=== PATIENT | male | born 1945 | race Caucasian/White ===

== ENCOUNTER → 2016-12-30 | Outpatient (REF) ==
[~2016-12-30] MED LIST: ALKA-SELTZER HE1 TEF PO; AMITRIPTYLINE H25 M1 PO; AMITRIPTYLINE H75 M1 PO; ASPIRIN 32325 MG/TAB PO; ATORVASTATIN; CARDIZEM CD360 MG PO; CARDIZEM LA300 MG PO; CARDIZEM LA360 MG PO; CELEXA 20MG20 MG/TAB PO; CORDARONE200 MG/TAB PO; COUMADIN 5MG5 MG/TAB PO; DULCOLAX S10 MG/SUPP RC; ENULOSE10 GM/15 M PO; FLOMAX 0.40.4 MG/CAP PO; FUROSEMIDE; GENTLE LAXATIVE10 MG RC; GOLYTELY1 PDR PO; LASIX 40MG TABL40 MG PO; LEVSIN0.125 M1 PO; LIPITOR 10MG10 MG PO; LISINOPRIL; LOPID PO; LOVENOX150 MG/ML SC; MIRALAX PA17 GM/Dose PO; MOBIC15 MG PO; MYCOSTATIN100000 U/G TP; PERCOCET 325 MG1 TA2 PO; PRIL40 PO; PRINIVIL20 MG PO; PRINIVIL5 MG PO; REMERON 15M15 MG/TA1 PO; RT ADVAIR HFA 1112 G IH; RT SPIRIVA18 MCG IH; TRAMADOL; TYLENOL 325MG325 MG PO; ULTRAM 50MG TAB50 MG PO; UNABLE; WELLBUTRIN SR100 M1 PO; WELLBUTRIN XL150 MG PO; XANAX; XANAX .25M0.25 MG/TA PO; XANAX 0.5MG0.5 MG PO; ZOCOR 10MG10 MG PO; [UNRECOGNIZED DRUG - OTHER]
== END ==
LOC: ZLAB.WCH 16:32
DX: Z01.89 Encounter for other specified special examinations (principal)

== ENCOUNTER → 2017-05-12 | Outpatient (REF) | LOC: ZLAB.WCH 17:59 | DX: Z01.89 Encounter for other specified special examinations (principal) ==

== ENCOUNTER → 2017-06-28 | Outpatient (CLI) | payer MEDICARE, BC | LOC: COL.PUL 09:34 | DX: R06.02 Shortness of breath (principal); Z87.891 Personal history of nicotine dependence; I51.89 Other ill-defined heart diseases ==

== ENCOUNTER → 2018-01-21 | Outpatient (REF) | LOC: ZLAB.WCH 17:51 | DX: Z01.89 Encounter for other specified special examinations (principal) ==

== ENCOUNTER → 2018-03-14 | Outpatient (CLI) | payer MEDICARE, BC | LOC: COL.PUL 08:23 | DX: G47.34 Idiopathic sleep related nonobstructive alveolar hypoventilation (principal) ==

== ENCOUNTER → 2018-05-17 | Outpatient (REF) | LOC: ZLAB.WCH 14:38 | DX: Z01.89 Encounter for other specified special examinations (principal) ==

== ENCOUNTER → 2018-08-22 | Outpatient (REF) | LOC: ZLAB.WCH 16:26 | DX: Z01.89 Encounter for other specified special examinations (principal) ==

== ENCOUNTER → 2019-03-07 | Outpatient (REF) | LOC: ZLAB.WCH 15:57 | DX: Z01.89 Encounter for other specified special examinations (principal) ==

== ENCOUNTER → 2019-03-24 | Emergency (ER) | payer MEDICARE, BC ==
[~2019-03-24] VITALS: Ht 177.8 cm; Wt 95.9 kg
[~2019-03-24] MED LIST changes: +DOXYCYCLINE 10100 MG PO; +ELIQUIS 5MG PO; +GLUCOPHAGE500 MG/TAB PO; +NEURONTIN400 MG/CAP PO; +PREDNISONE20 MG PO; +PROAIR HFA0.09 MG/AC IH; +STOOL SOFTENER100 M2 PO; +TOPROL XL100 MG PO
[2019-03-24 12:50] VITALS: TEMP 97.9
[2019-03-24 13:47] LABS: BASO # 0.1 (0.0-0.2); BASO % 1.1 % (0.0-2.0); EOS # 0.2 (0.0-0.7); EOS % 2.2 % (0-4.0); GRAN # 5.6 (1.4-6.5); GRAN % 73.4 % (42.2-75.2); HEMATOCRIT 45.4 % (42.0-52.0); HEMOGLOBIN 14.3 g/dl (13.5-18.0); LYMPH # 1.2 (1.2-3.4); LYMPH % 15.8 % (20.0-51.0); MEAN CELL VOLUME 92 fl (80.0-100.0); MEAN CORPUSCULAR HEMOGLOBIN 29 pg (27.0-31.0); MEAN CORPUSCULAR HGB CONC 32 g/dl (33.0-37.0); MEAN PLATELET VOLUME 11.9 fl (7.4-10.4); MONO # 0.5 (0.1-0.6); PLATELET COUNT 101 K/mm3 (130-400); RED BLOOD COUNT 4.94 M/mm3 (4.20-5.60); REDCELL DISTRIBUTION WIDTH-CV 13.4 % (11.5-14.5)
[2019-03-24 13:57] LABS: ALBUMIN 4.4 gm/dL (3.5-5.0); BILIRUBIN,TOTAL 0.8 mg/dL (0.0-1.0); CALCIUM 9.1 mg/dL (8.4-10.2); CREATININE, serum 0.78 (0.66-1.25); POTASSIUM 3.9 mmol/L (3.4-5.0); TOTAL PROTEIN 7.6 gm/dL (6.4-8.2)
[2019-03-24 15:50] VITALS: BP 130/79; PULSE 79
== END ==
LOC: COL.ER 12:46
PROVIDERS: Emergency Medicine
DX: J44.9 Chronic obstructive pulmonary disease, unspecified (principal); R09.02 Hypoxemia; F17.210 Nicotine dependence, cigarettes, uncomplicated; I10 Essential (primary) hypertension; E78.5 Hyperlipidemia, unspecified; Z86.718 Personal history of other venous thrombosis and embolism
CPT/HCPCS: J7512

== ENCOUNTER 2019-03-27 07:37 | Day surgery (SDC) | payer MEDICARE, BC ==
[~2019-03-27] VITALS: Ht 177.8 cm; Wt 98.7 kg
[~2019-03-27 07:37] MED LIST changes: -ELIQUIS 5MG PO; -GLUCOPHAGE500 MG/TAB PO; -NEURONTIN400 MG/CAP PO; -STOOL SOFTENER100 M2 PO; -TOPROL XL100 MG PO
[2019-03-27 08:28] VITALS: BP 153/84; PULSE 64; TEMP 98.4
--- NOTE | 2019-03-27 08:40 | NUR ---
TO RM AT 0750 CALL LIGHT IN REACH AT BEDSIDE.
[2019-03-27] MEDS ORDERED: STOOL SOFTENER100 M2 PO (08:46)
[2019-03-27] MEDS ORDERED: NEURONTIN400 MG/CAP PO (08:47)
[2019-03-27] MEDS ORDERED: GLUCOPHAGE500 MG/TAB PO (08:48)
[2019-03-27] MEDS ORDERED: TOPROL XL100 MG PO (08:49)
[2019-03-27] MEDS ORDERED: ELIQUIS 5MG PO (08:52)
[2019-03-27 09:50] VITALS: BP 106/84; PULSE 69
--- NOTE | 2019-03-27 09:50 | NUR ---
TO RM 8 PER CART FROM ENDOSCOPY FOLLOWING A BRONCHOSCOPY. PATIENT WEARING O2 MASK AT 5L, 02 SAT 94%. CRETA AND DAUGHTER TALKED TO DR VALADEZ PRIOR TO RETURNING TO . OCCASIONAL NONPRODUCTIVE COUGH. RESPIRATIONS LABORED ON ADMISSION WHEN TALKING.
[2019-03-27 10:05] VITALS: BP 129/76; PULSE 70
[2019-03-27 10:20] VITALS: BP 127/75; PULSE 66
--- NOTE | 2019-03-27 10:20 | NUR ---
RECEIVED WATER AND TAKING SIPS. REFUSED ANYTHING TO EAT. DISCONTINUED O2 SAT 90-91%
--- NOTE | 2019-03-27 10:20 | NUR ---
O2 SAT THEY WERE UPON ADMISSION. PATIENT HAS O2 AT HOME AND VERBALIZED UNDERSTANDING TO WEAR IT SOON HE GETS HOME STATED SHE DISCUSSED HIS O2 AT HOME AND WILL DISCUSS IT MORE ON THE FOLLOW UP.
--- NOTE | 2019-03-27 10:25 | NUR ---
RECEIVED AZITHROMYCIN AND PREDNISONE ORDERED PRIOR TO DISCHARGE. RECEIVED DISCHARGE MED INFORMATION SHEETS RECEIVED DISCHARGE INSTRUCTIONS AND VERBALIZED UNDERSTANDING. DISCONINTUED IV AND INT- CATHETER INTACT
--- NOTE | 2019-03-27 10:40 | NUR ---
DISCHARGED PER WC BY NURSING STAFF TO PRIVATE CAR IN CARE OF DEIDRE.
== END 2019-03-27 11:10 | disposition home or self-care (01) ==
LOC: SDCO 07:37
DX: J38.3 Other diseases of vocal cords (principal); J98.09 Other diseases of bronchus, not elsewhere classified; Z87.891 Personal history of nicotine dependence; I10 Essential (primary) hypertension; Z86.718 Personal history of other venous thrombosis and embolism; I27.20 Pulmonary hypertension, unspecified; Z79.01 Long term (current) use of anticoagulants; Z90.79 Acquired absence of other genital organ(s); Z90.49 Acquired absence of other specified parts of digestive tract; Z79.82 Long term (current) use of aspirin; Z88.8 Allergy status to other drugs, medicaments and biological substances; J44.9 Chronic obstructive pulmonary disease, unspecified; K21.9 Gastro-esophageal reflux disease without esophagitis; I48.91 Unspecified atrial fibrillation; M19.90 Unspecified osteoarthritis, unspecified site; G89.29 Other chronic pain; F41.9 Anxiety disorder, unspecified; F32.9 Major depressive disorder, single episode, unspecified; F42.9 Obsessive-compulsive disorder, unspecified; E11.42 Type 2 diabetes mellitus with diabetic polyneuropathy; M10.9 Gout, unspecified; Z85.46 Personal history of malignant neoplasm of prostate
CPT/HCPCS: J2704; J7120; J7512

== ENCOUNTER → 2019-06-26 | Outpatient (CLI) | payer MEDICARE, BC ==
[~2019-06-26] MED LIST changes: +ELIQUIS 5MG PO; +GLUCOPHAGE500 MG/TAB PO; +NEURONTIN400 MG/CAP PO; +STOOL SOFTENER100 M2 PO; +TOPROL XL100 MG PO
== END ==
LOC: COL.VAS 13:09
DX: I27.20 Pulmonary hypertension, unspecified (principal)

== ENCOUNTER → 2019-08-07 | Outpatient (CLI) | payer MEDICARE, BC | LOC: COL.RAD 11:21 | DX: J44.9 Chronic obstructive pulmonary disease, unspecified (principal); J84.9 Interstitial pulmonary disease, unspecified | CPT/HCPCS: A9540; A9567 ==

== ENCOUNTER 2019-09-12 06:45 | Day surgery (SDC) | payer MEDICARE, BC ==
[2019-09-12] VITALS (16 sets, daily range): BP systolic 111–159; BP diastolic 72–94; PULSE 43–63; TEMP 98.1
[~2019-09-12] VITALS: Ht 177.8 cm; Wt 98.9 kg
[~2019-09-12 06:45] MED LIST changes: +LIPITOR 40MG TA40 MG PO; +NEURONTIN300 MG/CAP PO; -NEURONTIN400 MG/CAP PO
[2019-09-12 07:54] LABS: PROTHROMBIN TIME 11.8 SECONDS (9.7-12.8)
[2019-09-12 07:55] LABS: HEMOGLOBIN 15.5 g/dl (13.5-18.0); MEAN CELL VOLUME 91 fl (80.0-100.0); MEAN CORPUSCULAR HEMOGLOBIN 29 pg (27.0-31.0); MEAN CORPUSCULAR HGB CONC 32 g/dl (33.0-37.0); MEAN PLATELET VOLUME 11.1 fl (7.4-10.4); PLATELET COUNT 139 K/mm3 (130-400); RED BLOOD COUNT 5.37 M/mm3 (4.20-5.60); REDCELL DISTRIBUTION WIDTH-CV 13.6 % (11.5-14.5)
[2019-09-12 07:56] LABS: PARTIAL THROMBOPLASTIN TIME 36.7 SECONDS (26.0-37.0)
[2019-09-12 08:12] LABS: CALCIUM 9.4 mg/dL (8.4-10.2); CREATININE, serum 0.82 (0.66-1.25); POTASSIUM 3.7 mmol/L (3.4-5.0)
[2019-09-12] MEDS ORDERED: AMARYL1 MG PO (08:21)
--- NOTE | 2019-09-12 09:22 | NUR ---
SEE MERGE REPORT FOR MEDICATION ADMINISTRATION TIMES WELL INTRA/POST SEDATION ASSESSMENTS.
[2019-09-12] MEDS ORDERED: ZEBETA10 MG PO (10:20)
[2019-09-12] MEDS ORDERED: ALDACTONE 25MG25 M1 PO (10:33)
--- NOTE | 2019-09-12 10:45 | NUR ---
PT back from cardiac cath lab radiology technologist, bs report from Keo SANDOVAL. Pt awake and alert, satting mid 90's on 4l o2/nc. site to rt groin looks good with no bleeding, bruising or hematoma. distal circulation intact. sinus mino on monitor. wctm
--- NOTE | 2019-09-12 10:52 | NUR ---
Pt transported to EU #14 via bed with oxygen at 4L/min as he uses at home. Bedside report to LORI Hook. Right groin sites stable, dressing clean, dry and intact. Distal pulses remain unchanged from prior to procedure. Pt connected to bedside ecg and vital signs monitor. Plan of care reviewed with family and pt by Dr. Courtney and all parties verbalized understanding.
--- NOTE | 2019-09-12 11:45 | NUR ---
pt reports needs to void, unable to void while on back, attempted reverse trendelenberg without relief. attempted to roll to right side without success.
--- NOTE | 2019-09-12 13:49 | NUR ---
pt has been able to void about 100-150 cc with some relief of his discomfort r/t full bladder. Pt also has been able to eat without issue. groin remains soft without bleeding, bruising or hematoma. wctm.
--- NOTE | 2019-09-12 17:00 | NUR ---
pt has completed bedrest, he is up and ambulatory around rn station with no problem, stand by assist. pt voided on toilet, but output was not measured, pt stated he voided "alot". groin site remains free of bleeding andhematoma. pt is dressed and ready to go, iv dc'd, cath intact, dressing applied. I reviewed in detail with pt and his , his dc, fu and rx instructions. pt was escorted to exit via wheelchair.
== END 2019-09-12 17:45 | disposition home or self-care (01) ==
LOC: COL.CAR 06:45
PROVIDERS: Internal Medicine Cardiovascular Disease
DX: I27.20 Pulmonary hypertension, unspecified (principal); I10 Essential (primary) hypertension; J93.9 Pneumothorax, unspecified; J84.10 Pulmonary fibrosis, unspecified; J32.9 Chronic sinusitis, unspecified; J44.9 Chronic obstructive pulmonary disease, unspecified; G47.33 Obstructive sleep apnea (adult) (pediatric); M50.33 Other cervical disc degeneration, cervicothoracic region; M51.37 Other intervertebral disc degeneration, lumbosacral region; K21.9 Gastro-esophageal reflux disease without esophagitis; M10.9 Gout, unspecified; E11.40 Type 2 diabetes mellitus with diabetic neuropathy, unspecified; E78.2 Mixed hyperlipidemia; E78.1 Pure hyperglyceridemia; F32.9 Major depressive disorder, single episode, unspecified; F41.1 Generalized anxiety disorder; Z86.718 Personal history of other venous thrombosis and embolism; Z86.010 Personal history of colon polyps; Z99.89 Dependence on other enabling machines and devices; Z79.899 Other long term (current) drug therapy; Z90.49 Acquired absence of other specified parts of digestive tract; Z87.891 Personal history of nicotine dependence; Z82.49 Family history of ischemic heart disease and other diseases of the circulatory system; Z82.5 Family history of asthma and other chronic lower respiratory diseases
CPT/HCPCS: C1760; C1894; J0153; J1644; J2250; J3010; Q9967

== ENCOUNTER 2020-01-30 16:55 | Emergency (ER) | payer MEDICARE, BC ==
[~2020-01-30] VITALS: Ht 177.8 cm; Wt 98.6 kg
[~2020-01-30 16:55] MED LIST changes: +ALDACTONE 25MG25 M1 PO; +AMARYL1 MG PO; +ZEBETA10 MG PO
[2020-01-30 17:20] VITALS: TEMP 97.5
[2020-01-30 18:13] LABS: BASO # 0.1 (0.0-0.2); BASO % 1.1 % (0.0-2.0); EOS # 0.2 (0.0-0.7); EOS % 2.7 % (0-4.0); GRAN # 5.8 (1.4-6.5); GRAN % 68.5 % (42.2-75.2); HEMATOCRIT 46.5 % (42.0-52.0); HEMOGLOBIN 14.8 g/dl (13.5-18.0); LYMPH # 1.6 (1.2-3.4); LYMPH % 18.4 % (20.0-51.0); MEAN CELL VOLUME 90 fl (80.0-100.0); MEAN CORPUSCULAR HEMOGLOBIN 29 pg (27.0-31.0); MEAN CORPUSCULAR HGB CONC 32 g/dl (33.0-37.0); MEAN PLATELET VOLUME 11.2 fl (7.4-10.4); MONO # 0.7 (0.1-0.6); MONO % 8.7 % (1.7-9.3); PLATELET COUNT 107 K/mm3 (130-400); RED BLOOD COUNT 5.17 M/mm3 (4.20-5.60); REDCELL DISTRIBUTION WIDTH-CV 13.3 % (11.5-14.5)
[2020-01-30 18:15] LABS: INR 1.3 (0.8-3.0); PROTHROMBIN TIME 14.9 SECONDS (9.7-12.8)
[2020-01-30 18:19] LABS: CALCIUM 9.2 mg/dL (8.4-10.2); CREATININE, serum 0.9 (0.66-1.25); POTASSIUM 4.4 mmol/L (3.4-5.0)
[2020-01-30 19:06] VITALS: BP 121/76; PULSE 58
== END 2020-01-30 19:07 | disposition home or self-care (01) ==
LOC: COL.ER 16:55
PROVIDERS: Emergency Medicine
DX: E11.40 Type 2 diabetes mellitus with diabetic neuropathy, unspecified (principal); R58 Hemorrhage, not elsewhere classified; E78.5 Hyperlipidemia, unspecified; I10 Essential (primary) hypertension; I48.91 Unspecified atrial fibrillation; Z79.01 Long term (current) use of anticoagulants

== ENCOUNTER → 2020-02-02 | Outpatient (CLI) | payer MEDICARE, BC | LOC: COL.VAS 13:19 | DX: I07.1 Rheumatic tricuspid insufficiency (principal); I27.20 Pulmonary hypertension, unspecified ==

== ENCOUNTER 2020-10-24 16:09 | Emergency (ER) | payer MEDICARE, BC ==
[~2020-10-24] VITALS: Ht 177.8 cm; Wt 97.7 kg
[2020-10-24 16:28] VITALS: TEMP 98.6
[2020-10-24 17:44] VITALS: BP 109/74; PULSE 54
== END 2020-10-24 19:45 | disposition home or self-care (01) ==
LOC: COL.ER 16:09
DX: R09.02 Hypoxemia (principal); S62.511A Displaced fracture of proximal phalanx of right thumb, initial encounter for closed fracture; Z79.84 Long term (current) use of oral hypoglycemic drugs; Z79.01 Long term (current) use of anticoagulants; W18.09XA Striking against other object with subsequent fall, initial encounter

== ENCOUNTER 2021-08-18 03:14 | Inpatient (IN) | payer MEDICARE, BC ==
[~2021-08-18] VITALS: Ht 177.8 cm; Wt 93.3 kg
[2021-08-18] VITALS (52 sets, daily range): BP systolic 100–129; BP diastolic 51–91; PULSE 102–166; TEMP 97.6–97.8; O2SAT 93–99
[2021-08-18 04:10] LABS: HEMOGLOBIN 11.1 g/dl (13.5-18.0); MEAN CELL VOLUME 94 fl (80.0-100.0); MEAN CORPUSCULAR HEMOGLOBIN 31 pg (27.0-31.0); MEAN CORPUSCULAR HGB CONC 33 g/dl (33.0-37.0); MEAN PLATELET VOLUME 11.9 fl (7.4-10.4); PLATELET COUNT 147 K/mm3 (130-400); RED BLOOD COUNT 3.62 M/mm3 (4.20-5.60); REDCELL DISTRIBUTION WIDTH-CV 14.2 % (11.5-14.5)
[2021-08-18 04:14] LABS: HEMATOCRIT 34.1 % (42.0-52.0)
[2021-08-18 04:18] LABS: INR 1.5 (0.8-3.0); PROTHROMBIN TIME 16.8 SECONDS (9.7-12.8)
[2021-08-18 04:21] LABS: PARTIAL THROMBOPLASTIN TIME 26.5 SECONDS (26.0-37.0)
[2021-08-18 05:16] LABS: ALANINE AMINOTRANSFERASE 24 U/L (0-55); ALBUMIN 3.4 gm/dL (3.4-4.8); ALKALINE PHOSPHATASE 52 U/L (0-750); ANION GAP 17 mmol/L; AST,SGOT 23 U/L (5-34); BILIRUBIN,TOTAL 0.5 mg/dL (0.2-1.2); BLOOD UREA NITROGEN 59 mg/dL (8-26); CALCIUM 8.3 mg/dL (8.4-10.2); CARBON DIOXIDE 19 mEq/L (23-31); CHLORIDE 106 mmol/L (98-107); CREATINE KINASE 85 U/L (30-200); CREATININE, serum 1.11 mg/dL (0.72-1.25); GLUCOSE 237 mg/dL (70-99); POTASSIUM 4.6 mmol/L (3.5-4.5); SODIUM 142 mmol/L (136-145); TOTAL PROTEIN 6.1 gm/dL (6.2-8.1)
[2021-08-18 05:20] LABS: BAND 1 % (0-10); LYMPHOCYTE 10 % (20.0-51.0); NEUTROPHILS 85 % (42.0-75.2); PLATELET ESTIMATE NORMAL (NORMAL)
[2021-08-18 05:28] LABS: TROPONIN-I < 0.010 ng/mL (0.00-0.033)
[2021-08-18] MEDS ORDERED: COLACE 100100 MG/CAP PO (06:30)
[2021-08-18] MEDS ORDERED: ZOFRAN ODT4 MG PO (06:30)
[2021-08-18] MEDS ORDERED: SENNA-LAX8.6 MG PO (06:30)
[2021-08-18] MEDS ORDERED: PRILOTC PO (06:31)
[2021-08-18 06:59] LABS: COLLECTION METHOD CATHETER
[2021-08-18 07:13] LABS: PH 5 (5-8); SQUAMOUS EPITHELIAL 0-2 /hpf; URINE APPEARANCE Clear; URINE BACTERIA None Seen /hpf; URINE BILIRUBIN Negative (NEGATIVE); URINE BLOOD Negative (NEGATIVE); URINE COLOR Yellow; URINE GLUCOSE 1+ (NEGATIVE); URINE KETONE 1+ (NEGATIVE); URINE LEUKOCYTE ESTERASE Negative (NEGATIVE); URINE NITRATE Negative (NEGATIVE); URINE PROTEIN(semi-quant) Negative (NEGATIVE); URINE RBC 0-2 /hpf; URINE UROBILINOGEN Negative (NEGATIVE); URINE WBC 0-2 /hpf
--- NOTE | 2021-08-18 14:36 | NUR ---
SW was unable to meet with patient d/t agitation and confusion. This worker contacted patient's , Ra ([phone]), who is also his MPOA. Patient and reside in [place]. Per , patient uses no DME's and is fully independent. He does use continuous 4L 02, which he obtains through [facility]. PCP is Dr. Seay. SW will follow patient for any D/C needs. *D/C home with 02
[2021-08-18] MEDS ORDERED: AMARYL 2MG T2 MG/TAB PO (15:20)
[2021-08-18] MEDS ORDERED: XANAX .25M0.25 MG/TA PO (15:21)
[2021-08-18] MEDS ORDERED: NEURONTIN300 MG/CAP PO (15:22)
[2021-08-18] MEDS ORDERED: LIPITOR 10MG10 MG PO (15:24)
[2021-08-18] MEDS ORDERED: DULCOLAX STOOL100 MG PO (15:26)
[2021-08-18] MEDS ORDERED: CALCIUM WITH D31 CTB PO (15:27)
[2021-08-18] MEDS ORDERED: ALDACTONE 25MG25 M1 PO (15:28)
[2021-08-18] MEDS ORDERED: CARDIZEM CD 12120 MG PO (15:29)
[2021-08-18] MEDS ORDERED: LASIX 40MG TABL40 MG PO (15:30)
[2021-08-18] MEDS ORDERED: MIRTAZAPINE7.5 MG PO (15:30)
--- NOTE | 2021-08-18 20:20 | NUR ---
Primary RN requested assistance with patient due to elevated HR. Telemetry reporting A-fib RVR 130-160s. Stat EKG ordered, with results showing A-fib RVR 160. BP 105/84. Called and updated SUZANNA Tavares. Stated she will call cardiology. Awaiting further orders at this time.
--- NOTE | 2021-08-18 20:46 | NUR ---
Cardizem drip started at this time, running per orders. BP: 123/79
--- NOTE | 2021-08-18 20:54 | NUR ---
RECEIVED VERBAL INSTRUCTIONS FROM SUZANNA SCHMID TO HOLD MEDICATIONS AT THIS TIME.
--- NOTE | 2021-08-18 21:41 | NUR ---
Patient's HR continues to be in the 160-180s. Updated SUZANNA Tavares. New order for Cardizem bolus received, and given at this time.
--- NOTE | 2021-08-18 22:10 | NUR ---
Patient's HR remains in the 170-180s. SUZANNA Tavares aware, and spoke with Dr. Lai. Patient given Lanoxin bolus at 2204 per orders.
--- NOTE | 2021-08-18 22:42 | NUR ---
PT ALERT, PARTIALLY ORIENTED. INTERMITTENT CONFUSION NOTED. PT SKIN WITHIN DEFINED LIMITS, LUNG SOUNDS CLEAR TO AUSCULTATION. PT TACHYCARDIC, AFIB RVR IN 170-180S PER TELEMETRY. PT STATES "FEELING SICK." PT HAS BILATERAL DISCOLORATION OVER LEGS FROM NEUROPATHY PER . PT HAS SLIGHT SLURRED SPEECH. PT PULSES 2+ IN ALL EXTREMITIES. PT CALL LIGHT WITHIN REACH AT THIS TIME. SUZANNA SCHMID NOTIFIED OF AFIB, RVR.
--- NOTE | 2021-08-18 22:46 | NUR ---
Amiodarone bolus started at this time per orders. Order to sent patient to ICU for closer monitoring due to HR continuing to be in A-fib, RVR with HR 150-170s. aware of order. Primary nurse to call and given report to ICU staff.
--- NOTE | 2021-08-18 23:26 | NUR ---
REPORT CALLED TO LORI WAGGONER IN ICU. PT TRANSFERRED DOWN TO ICU FLOOR AT THIS TIME.
[2021-08-19] VITALS (506 sets, daily range): BP systolic 107–136; BP diastolic 63–89; PULSE 69–168; TEMP 97.8–98.5; O2SAT 87–100
--- NOTE | 2021-08-19 00:13 | NUR ---
PATIENT ARRIVES AT 2300, WITH CONFUSION OF FUTURE, ORIENT SHANNON TO TIME AND PLACE AND HAS EXCWLLENT RECALL OF INFO.
[2021-08-19 00:35] LABS: COLLECTION METHOD CATHETER
[2021-08-19 00:40] LABS: PH 5 (5-8); SQUAMOUS EPITHELIAL None Seen /hpf; URINE APPEARANCE Clear; URINE BACTERIA None Seen /hpf; URINE BILIRUBIN Negative (NEGATIVE); URINE BLOOD Negative (NEGATIVE); URINE COLOR Straw; URINE GLUCOSE Negative (NEGATIVE); URINE KETONE Negative (NEGATIVE); URINE LEUKOCYTE ESTERASE Negative (NEGATIVE); URINE NITRATE Negative (NEGATIVE); URINE PROTEIN(semi-quant) Negative (NEGATIVE); URINE RBC 0-2 /hpf; URINE UROBILINOGEN Negative (NEGATIVE)
[2021-08-19 05:24] LABS: BASO # 0.1 (0.0-0.2); BASO % 0.7 % (0.0-2.0); EOS # 0.1 (0.0-0.7); EOS % 0.9 % (0-4.0); GRAN # 8.2 (1.4-6.5); HEMATOCRIT 27.2 % (42.0-52.0); HEMOGLOBIN 8.6 g/dl (13.5-18.0); LYMPH # 2.1 (1.2-3.4); LYMPH % 17.5 % (20.0-51.0); MEAN CELL VOLUME 98 fl (80.0-100.0); MEAN CORPUSCULAR HEMOGLOBIN 31 pg (27.0-31.0); MEAN CORPUSCULAR HGB CONC 32 g/dl (33.0-37.0); MEAN PLATELET VOLUME 11.2 fl (7.4-10.4); MONO # 1.2 (0.1-0.6); MONO % 9.8 % (1.7-9.3); PLATELET COUNT 147 K/mm3 (130-400); RED BLOOD COUNT 2.78 M/mm3 (4.20-5.60); REDCELL DISTRIBUTION WIDTH-CV 14.7 % (11.5-14.5)
[2021-08-19 05:43] LABS: CALCIUM 8.4 mg/dL (8.4-10.2); CREATININE, serum 1.03 mg/dL (0.72-1.25)
--- NOTE | 2021-08-19 10:00 | NUR ---
Assessment completed, drowsy but arousable, disoriented while awake, heart irregular/ A.fib RVR on tele, rate still 120-170, other vital signs stable, Cardiology consulted and plans for Cardioversion this morning/ luiza notified, Candelaria held per hospitalist as his hemaglobin is trending down/ Cardiology aware of holding anticoagulation, I have spoke with his on the phone and notified her of plan of care and answered quesitons, he is not having any resp.difficulty and lungs are CTA/ 4L.o2 via oxymask, rowland cath was placed over night for urinary retention/ patent at this time with good output/ clear yellow urine, bed alarm set/ will cotinue to monitor
[2021-08-19 10:16] LABS: HEMATOCRIT 25.4 % (42.0-52.0); HEMOGLOBIN 8.1 g/dl (13.5-18.0)
--- NOTE | 2021-08-19 10:38 | NUR ---
Patient currently experiencing episodes of confusion. molding utility worker contacted the patients to discuss discharge plan due to the patient condition. Patient lives at home with his , Zeynep ([phone]) in [place], [place]. reports that the patient is fully independent at home with his activities of daily living, does not use any medical equipment to assist with mobility, however does use O2 within the home which she thinks comes from [facility]. [facility], but will also use [facility] if needed. Patient has had prior HH services from [facility] after 2020 Covid hospitalization and was happy with their care. states that the patient does have a DPOA-HC established and it has been updated from the one the hospital has on file. states that she is coming up to see the patient soon and will bring a copy of the updated version for us listing her as the agent. *Discharge plan: Home pending PT/OT rec's *
--- NOTE | 2021-08-19 10:40 | NUR ---
in room with luiza for Cardioversion, Propafol given at 1041 and 1 shock at 200 J given, patient now appears to be in a sinus rythm at 71bpm , other vital signs stable and documented, I notified of successful cardioversion
--- NOTE | 2021-08-19 16:00 | NUR ---
patient trasnferring upstairs to Medical, I have given report to LORI Avilez, he is being trasnported upstairs by wheelchair, his is present at this time
[2021-08-19 16:24] LABS: HEMATOCRIT 25.4 % (42.0-52.0)
--- NOTE | 2021-08-19 21:30 | NUR ---
Patient is lying in bed, alert and oriented x 4, VSS, just finished dinner. Reports discomfort in upper and lower extremities. Hands are cold. Left foot with pitting edema 2+. Tele in place. Slurred speech. 4L O2 NC. Assessment completed, meds provided, no further needs at this time. Call light within reach.
[2021-08-20] VITALS (12 sets, daily range): BP systolic 111–138; BP diastolic 57–85; PULSE 77–86; TEMP 97.5–98.3
--- NOTE | 2021-08-20 06:45 | NUR ---
Patient was taken for scheduled procedure in bed.
--- NOTE | 2021-08-20 07:30 | NUR ---
Pt back to room following procedure, awake and alert, oriented x 4, denies pain at this time. VSS. IVF's infusing by gravity through right hand site without s/s of complications. Pt requesting food and drink which will be provided per orders. No further needs reported. Call light in reach.
[2021-08-20 08:01] LABS: MEAN CELL VOLUME 98 fl (80.0-100.0); MEAN CORPUSCULAR HGB CONC 32 g/dl (33.0-37.0); MEAN PLATELET VOLUME 11.7 fl (7.4-10.4); PLATELET COUNT 93 K/mm3 (130-400); RED BLOOD COUNT 2.37 M/mm3 (4.20-5.60)
[2021-08-20 08:11] LABS: HEMATOCRIT 23.2 % (42.0-52.0); HEMOGLOBIN 7.3 g/dl (13.5-18.0); MEAN CORPUSCULAR HEMOGLOBIN 31 pg (27.0-31.0)
[2021-08-20 08:41] LABS: CALCIUM 7.9 mg/dL (8.4-10.2); CREATININE, serum 0.92 mg/dL (0.72-1.25); POTASSIUM 4.2 mmol/L (3.5-4.5)
[2021-08-20 09:09] LABS: BAND 2 % (0-10); BASOPHIL 1 % (0-2); LYMPHOCYTE 18 % (20.0-51.0); NEUTROPHILS 73 % (42.0-75.2); PLATELET ESTIMATE DECREASED (NORMAL); POLYCHROMASIA 1+
[2021-08-20 13:04] LABS: IRON,SERUM 37 ug/dL (35-150); TOTAL IRON BINDING CAPACITY 340 ug/dL (261-462)
--- NOTE | 2021-08-20 14:20 | NUR ---
Pt assisted from chair back to bed x 1 assist and pt has incontinent dripping of urine while standing, voids into urinal with slight difficulty, 100 ml clear and yellow.
--- NOTE | 2021-08-20 15:23 | NUR ---
IRVING spoke with patient's , who came to visit her and ask some questions about his progress. This worker met with to explain the recommendation of IPR and the process that a patient would need to go through to qualify, as well as the recommendations that are being made by therapy. IRVING Ralph, called Amy (THA) to have her look at patient.
[2021-08-20 16:27] LABS: RETIC # 0.11 M/mm3 (0.02-0.16); RETIC % 4.7 % (0.5-3.52)
[2021-08-20 17:09] LABS: HEMATOCRIT 23.1 % (42.0-52.0); HEMOGLOBIN 7.1 g/dl (13.5-18.0)
--- NOTE | 2021-08-20 20:00 | NUR ---
Patient is sitting in chair, alert and oriented x 4, VSS, no complains of nausea or vomiting. He sais he has pain in his penis. Asked Hospitalist for pain medication. Tele in place, 2L O2 NC. Assessment completed, no further needs at this time. Call light within reach.
[2021-08-21] VITALS (7 sets, daily range): BP systolic 94–125; BP diastolic 46–67; PULSE 76–83; TEMP 97.6–98.4
[2021-08-21 01:19] LABS: FOLATE (FOLIC ACID) 8.2 ng/mL (2.0-20.0)
--- NOTE | 2021-08-21 06:32 | NUR ---
Patient is currently resting. He is uncomfortable with his penis. Inflamation rednes present. He was able to rest after 0200 with no further complains. Shift report will be given to day nurse.
[2021-08-21 06:59] LABS: BASO # 0.1 (0.0-0.2); EOS # 0.1 (0.0-0.7); EOS % 2.3 % (0-4.0); GRAN # 3.5 (1.4-6.5); GRAN % 65.9 % (42.2-75.2); LYMPH # 1.1 (1.2-3.4); LYMPH % 20.5 % (20.0-51.0); MEAN CELL VOLUME 97 fl (80.0-100.0); MEAN CORPUSCULAR HGB CONC 32 g/dl (33.0-37.0); MEAN PLATELET VOLUME 11.2 fl (7.4-10.4); MONO # 0.5 (0.1-0.6); MONO % 9.2 % (1.7-9.3); PLATELET COUNT 97 K/mm3 (130-400); RED BLOOD COUNT 2.25 M/mm3 (4.20-5.60)
[2021-08-21 07:00] LABS: HEMATOCRIT 21.9 % (42.0-52.0); MEAN CORPUSCULAR HEMOGLOBIN 31 pg (27.0-31.0)
[2021-08-21 07:28] LABS: CALCIUM 8.5 mg/dL (8.4-10.2); CREATININE, serum 0.94 mg/dL (0.72-1.25); POTASSIUM 3.7 mmol/L (3.5-4.5)
--- NOTE | 2021-08-21 13:34 | NUR ---
IRVING spoke with Amy to review whether patient is appropriate for inpatient rehab, as that is the recommendation. IRVING will cont to follow
--- NOTE | 2021-08-21 13:43 | NUR ---
First visit from the industrial relations officer. No needs right now.
--- NOTE | 2021-08-21 13:55 | NUR ---
Primary nurse was assisted with [phone] patient care by [employer] student Augustina Berg and [employer] instructor Bettie Rosen MSN, RN.
[2021-08-21 17:00] LABS: HEMATOCRIT 22.5 % (42.0-52.0)
--- NOTE | 2021-08-21 20:00 | NUR ---
Patient is sitting in chair, alert and oriented x 4, VSS, Tele in place, 2L NC, denies nausea, vomiting. Pain in his penis, PRN will be provided.Assisted to the restrom and to bed. Assessment completed, no further needs at this time, call light within reach.
[2021-08-22 00:38] VITALS: BP 121/66; PULSE 74; TEMP 98
[2021-08-22 04:50] VITALS: BP 112/69; PULSE 71; TEMP 97.9
--- NOTE | 2021-08-22 06:59 | NUR ---
Patient has had a calm night. All needs met. He just complained at 0600 of generalized pain and he would like to have a better pain control medication. Report given to dayshift nurse.
--- NOTE | 2021-08-22 07:00 | NUR ---
Report with LORI Mathias. Pt sitting up in chair, reports aches all over. This nurse discusses possible medication adjustments and talking with provider. Pt verbalizes understanding.
[2021-08-22 07:40] VITALS: BP 109/68; PULSE 82; TEMP 98.2
[2021-08-22 08:34] LABS: MEAN CELL VOLUME 97 fl (80.0-100.0); MEAN CORPUSCULAR HGB CONC 31 g/dl (33.0-37.0); MEAN PLATELET VOLUME 11.7 fl (7.4-10.4); PLATELET COUNT 107 K/mm3 (130-400); RED BLOOD COUNT 2.45 M/mm3 (4.20-5.60); REDCELL DISTRIBUTION WIDTH-CV 15.6 % (11.5-14.5)
[2021-08-22 08:42] LABS: HEMOGLOBIN 7.4 g/dl (13.5-18.0); MEAN CORPUSCULAR HEMOGLOBIN 30 pg (27.0-31.0)
[2021-08-22 08:43] LABS: HEMATOCRIT 23.7 % (42.0-52.0)
[2021-08-22 08:49] LABS: CALCIUM 8.9 mg/dL (8.4-10.2); CREATININE, serum 0.94 mg/dL (0.72-1.25); POTASSIUM 3.8 mmol/L (3.5-4.5)
[2021-08-22] MEDS ORDERED: B-121000 MCG PO (09:15)
[2021-08-22] MEDS ORDERED: LASIX 20MG TABL20 MG PO (09:15)
[2021-08-22] MEDS ORDERED: PACERONE400 MG PO (09:18)
--- NOTE | 2021-08-22 09:24 | NUR ---
Patient accepted for IPR stay. Patient and patient's notified.
[2021-08-22 09:31] LABS: BAND 2 % (0-10); BASOPHIL 1 % (0-2); EOSINOPHIL 8 % (0-4); LYMPHOCYTE 18 % (20.0-51.0); NEUTROPHILS 69 % (42.0-75.2); NUCLEATED RED BLOOD CELL 2 (0-6)
[2021-08-22 09:40] LABS: HYPOCHROMIA 2+
[2021-08-22 09:41] LABS: MICROCYTOSIS 2+; PLATELET ESTIMATE DECREASED (NORMAL)
--- NOTE | 2021-08-22 10:39 | NUR ---
Assessment entered by student nurse reviewed and agreed by this nurse with addition of red circular rash on back, and redness around head of penis.
[2021-08-22 11:09] VITALS: BP 125/68; PULSE 80; TEMP 98.1
--- NOTE | 2021-08-22 13:24 | NUR ---
Pt discharged to IPR via WC accompanied by physical therapist. IPR paperwork with pt.
== END 2021-08-22 13:25 | DRG 309 ==
LOC: COL.ER 03:14 → ICU 09:48 → MEDICAL 09:48 → ICU 22:28 → MEDICAL 08-19 17:11
PROVIDERS: Emergency Medicine; Family Medicine; Physician Assistant; Student in an Organized Health Care Education/Training Program; ADMIT Internal Medicine
PROC: 5A2204Z Restoration of Cardiac Rhythm, Single (ICD-10-PCS; principal; 2021-08-22)
DX: I48.0 Paroxysmal atrial fibrillation (principal); J96.11 Chronic respiratory failure with hypoxia; D64.9 Anemia, unspecified; K26.9 Duodenal ulcer, unspecified as acute or chronic, without hemorrhage or perforation; K20.90 Esophagitis, unspecified without bleeding; D51.9 Vitamin B12 deficiency anemia, unspecified; D69.6 Thrombocytopenia, unspecified; J44.9 Chronic obstructive pulmonary disease, unspecified; R33.9 Retention of urine, unspecified; N47.2 Paraphimosis; E86.1 Hypovolemia; E78.5 Hyperlipidemia, unspecified; F41.9 Anxiety disorder, unspecified; F32.9 Major depressive disorder, single episode, unspecified; E11.40 Type 2 diabetes mellitus with diabetic neuropathy, unspecified; M10.9 Gout, unspecified; Z85.46 Personal history of malignant neoplasm of prostate
CPT/HCPCS: 99232-AI; 99233-AI; 99239; A4314; C9113; J0282; J1160; J1815; J2060; J2270; J2405; J2550; J2704; J7030; J7060; Q9967

== ENCOUNTER 2021-08-22 10:36 | Inpatient (IN) | payer MEDICARE, BC ==
[~2021-08-22] VITALS: Ht 177.8 cm; Wt 127.0 kg
[~2021-08-22 10:36] MED LIST changes: +AMARYL 2MG T2 MG/TAB PO; +B-121000 MCG PO; +CALCIUM WITH D31 CTB PO; +CARDIZEM CD 12120 MG PO; +COLACE 100100 MG/CAP PO; +DULCOLAX STOOL100 MG PO; +LASIX 20MG TABL20 MG PO; +MIRTAZAPINE7.5 MG PO; +PACERONE400 MG PO; +PRILOTC PO; +SENNA-LAX8.6 MG PO; +ZOFRAN ODT4 MG PO
--- NOTE | 2021-08-22 14:01 | NUR ---
Primary nurse was assisted with [phone] patient care by [facility] [employer] student Augustina Berg and [facility] [employer] [employer] instructor Bettie Rosen MSN, RN
--- NOTE | 2021-08-22 15:00 | NUR ---
PATIENT IS ALERT AND ORIENTED X4. LAYING DOWN IN BED. ADMITTED TO ROOM 337. PATIENT DENIES PAIN OR FURTHER NEEDS AT THIS TIME. PATIENT UP TO BATHROOM. WEAK GAIT BUT STEADY. CALL LIGHT WITHIN REACH. PATIENT ON CARB CONTROLLED DIET. SCDS ON BILATERAL LOWER EXTREMITIES. HEAD TO TOE ASSESSMENT COMPLETE.
[2021-08-22 16:29] VITALS: BP 116/63; PULSE 74; TEMP 97.8
[2021-08-22 16:30] VITALS: BP 116/63; PULSE 74; TEMP 97.8
--- NOTE | 2021-08-22 19:00 | NUR ---
PT SITTING IN RECLINER. HAS MANY QUESTIONS AND CONCERNS. ANSWERED QUESTIONS. WILL REFER SOME TO [facility] ON WEDNESDAY REGARDING MEDICARE. HERE. PT VERBALIZES DOES NOT WANT TO BE HERE AND IS DOING FINE. ENC TO STAY TILL WEDNESDAY TO DISCUSS WITH DOTOR ABOUT PLAN. PT AGREED. CALL LIGHT IN REACH. CHAIR ALARM SET.
--- NOTE | 2021-08-22 21:08 | NUR ---
PT SITTING IN CHAIR. O2 2L NC. PT RELATES HE WEAR CPAP AT HOME. ASKED TO HAVE HIS TO BRING IN. AGREED.
--- NOTE | 2021-08-22 21:58 | NUR ---
PT TRANSFERRED TO BED. CALL LIGHT IN REACH. BED ALARM SET.
[2021-08-23 05:19] VITALS: BP 117/70; PULSE 74; TEMP 98.6
--- NOTE | 2021-08-23 06:53 | NUR ---
Report received from LORI Rendon. Patient is sitting in recliner and denies pain at this time. Call light and bedside table are within reach. Will continue to monitor patient throughout shift.
--- NOTE | 2021-08-23 10:00 | NUR ---
Patient became frustrated because he does not want to use a walker or gait belt. This nurse explained to patient it is a safety issue and has to use it. Constantly have to cue patient to use walker correctly. Patient states he does not know how to use a walker because he does not use one at home. This nurse showed walker how to use the walker properly but still a work in progress. Will continue to monitor patient throughout shift.
--- NOTE | 2021-08-23 12:00 | NUR ---
Patient has completed all therapies for the day and is resting in recliner. Call light and bedside table are within reach.
--- NOTE | 2021-08-23 13:52 | NUR ---
Plan is to return home with Zeynep in [place]. SW met with patient about care supports. Patient reports that his is care supports and can be reached at her cell or home . Patient reports that he uses oxygen at home 2-3 liters but has been as high as 4-5 liters. Patient reports that oxygen is serviced with [facility]. Patient reports PCP is Dr. Jan Petty and Dr. Lawler in [place] and in [place] for Diabetic Optic Nerve issues. Patient reports that his dtr Gwendolyn Del Cid is another contact . Patient reports that he is not in pain and has not been using any DME for mobility or heart. Patient reports a care concern about not being able to tie his pants and being embarrased about not know how to tie them because he never learned and his would give him alternatives such as velcro or things that have elastic or a belt. Patient reports that he did get snippet with the nurse and OT/PT person because they were pushing him in something that he could not do and did not feel comfortable to talk about it with them. SW and patient talked about a plan for supporting his pants issues and offered sweat pants with band. SW gave patient pants to avoid feeling any other embarrassment. Will continue to follow for supports. Educated on services with case managment.
[2021-08-23 17:32] VITALS: BP 133/72; PULSE 76; TEMP 98.3
--- NOTE | 2021-08-23 20:03 | NUR ---
PT SITTING UP IN RECLINER. ASSISTED TO BR WITH WALKER. PT ALITTLE UNSTEADY. O2 2.5L NC AT THIS TIME. NO RESP DISTRESS. BACK TO RECLINER. CHAIR ALARM SET. CALL LIGHT IN REACH.
--- NOTE | 2021-08-23 22:19 | NUR ---
PT WOKE UP CONFUSED. REORIENTED. ASSISTED TO BR. VOIDED AND BACK TO BED. CALL LIGHT IN REACH. BED ALARM SET.
--- NOTE | 2021-08-23 23:54 | NUR ---
pt sleeping at this time.
[2021-08-24 05:52] VITALS: BP 112/71; PULSE 69; TEMP 97.6
--- NOTE | 2021-08-24 06:34 | NUR ---
Received report from LORI Rendon. Patient is sleeping in bed. Call light and bedside table are within reach. Will continue to monitor patient throughout shift.
--- NOTE | 2021-08-24 13:56 | NUR ---
Per Dr. Cantor, patient can keep oral mouth wash at bedside and use at leisure. This nurse put three at bedside.
--- NOTE | 2021-08-24 15:30 | NUR ---
Patient's is sitting at bedside with patient. Patient denies pain at this time. Call light and bedside table are within reach.
[2021-08-24 17:42] VITALS: BP 119/68; PULSE 83; TEMP 98.4
--- NOTE | 2021-08-24 21:13 | NUR ---
PT RESTING IN BED. GAVE HS SNACK. DENIES PAIN. SHIFT ASSESSMENT COMPLETED. CALL LIGHT IN REACH. BED ALARM SET.
--- NOTE | 2021-08-24 21:26 | NUR ---
GAVE SENOKOT FOR C/O CONSTIPATION.
--- NOTE | 2021-08-24 23:44 | NUR ---
ASSISTED TO BR WITH WALKER. STANQ PUSHES WALKER ASIDE. HAS POOR SAFETY JUDGEMENT. PT FRUSTRATED. HE DOESN'T WANT WALKER,GAIT BELT OR FALL PRECAUTIONS. PROVIDED RATIONALE FOR SAFETY PRECAUTIONS. ASSISTED BACK TO BED. NO BM YET. CALL LIGHT IN REACH. BED ALARM SET.
--- NOTE | 2021-08-25 02:25 | NUR ---
ASSISTED PT TO BR WITH WALKER. UNABLE TO HAVE BM. GAVE SUPPOSITORY. PT RELATES HE IS HAVING BAD DREAMS. PT SL ANXIOUS. DENIES NEED FOR ATIVAN.
--- NOTE | 2021-08-25 02:31 | NUR ---
PT AGREES TO ATIVAN. SEE MAR .
--- NOTE | 2021-08-25 03:13 | NUR ---
PT SLEEPING. NO DISTRESS.
--- NOTE | 2021-08-25 04:53 | NUR ---
ASSISTED PT TO BR. HAD MED SOFT FORMED VERY DARK BROWN/BLACK STOOL. NO JEANNINE BLEEDING NOTED.
[2021-08-25 05:21] VITALS: BP 124/72; PULSE 70; TEMP 98
[2021-08-25 07:20] LABS: BASO % 0.6 % (0.0-2.0); EOS # 0.2 (0.0-0.7); EOS % 2.6 % (0-4.0); GRAN # 4.2 (1.4-6.5); GRAN % 68.7 % (42.2-75.2); LYMPH % 15.7 % (20.0-51.0); MEAN CELL VOLUME 94 fl (80.0-100.0); MEAN CORPUSCULAR HGB CONC 32 g/dl (33.0-37.0); MEAN PLATELET VOLUME 11.8 fl (7.4-10.4); MONO # 0.7 (0.1-0.6); MONO % 10.9 % (1.7-9.3); PLATELET COUNT 104 K/mm3 (130-400); RED BLOOD COUNT 2.56 M/mm3 (4.20-5.60); REDCELL DISTRIBUTION WIDTH-CV 15.5 % (11.5-14.5)
[2021-08-25 07:22] LABS: HEMATOCRIT 24.1 % (42.0-52.0); HEMOGLOBIN 7.6 g/dl (13.5-18.0); MEAN CORPUSCULAR HEMOGLOBIN 30 pg (27.0-31.0)
[2021-08-25 07:41] LABS: CREATININE, serum 0.99 mg/dL (0.72-1.25); MAGNESIUM 2.2 mg/dL (1.6-2.6); POTASSIUM 4.2 mmol/L (3.5-4.5)
--- NOTE | 2021-08-25 08:00 | NUR ---
Assessment completed, alert/oriented but forgetfull, patient does not think he needs to be here but does follow commands and answers questions appropriately, denies pain or discomfort, heart RRR/ distal pulses aer palapble, lungs CTA/ no resp.difficulty noted, he is getting up with 1x stand by assist with his walker, denies other needs at this time, currently in his recliner/ chair alarm on and waiting for ST
--- NOTE | 2021-08-25 15:45 | NUR ---
Admission QIM scores were reviewed by the team. Code of 3 chosen for toilet hygiene was determined by team discussion to be the most usual performance for this patient during the assessment period. Code of 3 chosen for toileting transfers was determined by team discussion to be the most usual performance for this patient during the assessment period. Code of 3 chosen for Shower/Bathe self was determined by team discussion to be the most usual performance for this patient during the assessment period. Code of 3 chosen for lower body dressing was determined by team discussion to be the most usual performance for this patient during the assessment period. Code of 2 chosen for putting on/taking off footwear was determined by team discussion to be the most usual performance for this patient during the assessment period. Code of 4 chosen for sit to lying was determined by team discussion to be the most usual performance for this patient during the assessment period. Code of 4 chosen for lying to sitting on side of bed was determined by team discussion to be the most usual performance for this patient during the assessment period. Code of 4 chosen for walk 10 feet was determined by team discussion to be the most usual performance for this patient during the assessment period.--Amy Archer,
[2021-08-25 17:26] VITALS: BP 120/65; PULSE 75; TEMP 98.3
--- NOTE | 2021-08-25 21:20 | NUR ---
ALERT AND OX4. DENIES SOA, CHEST PAIN OR LIGHT HEADED. NO GENERLIZED PAIN. PM MEDS TO INCLUDE PRN XANAX GIVEN. POC DISCUSSED. WATER JUG REFILLED. TUCKED IN BED. CALL LIGHT WI REACH. BED IN LOW POSITION.
--- NOTE | 2021-08-25 23:01 | NUR ---
PT C/O UPSET STOMACH REQ ALKSELTZER. DO NOT CARRY HERE. TUMS ORDER PLACED. PT STATES HE ATE TO MANY [employer]S.
--- NOTE | 2021-08-26 04:26 | NUR ---
RESTED THOUGH THE NIGHT WITHOUT INCIDENT. NEEDS ARE MET. CALL LIGHT WI REACH.
[2021-08-26 04:31] VITALS: BP 115/73; PULSE 65; TEMP 97.4
--- NOTE | 2021-08-26 15:03 | NUR ---
IRVING contacted the patient's , Zeynep, to discuss setting up a patient/family meeting. The meeting was scheduled for tomorrow at 1300. IRVING notified IPR Director.
[2021-08-26 16:00] VITALS: BP 124/69; PULSE 70; TEMP 98.1
--- NOTE | 2021-08-26 18:07 | NUR ---
Pt has had uneventful day. No concerns. Very independent, he prefers to do things on his own, and does not wait for assistance despite being asked to call for help.
--- NOTE | 2021-08-26 21:37 | NUR ---
ALERT AND OX3. ASKING WHERE IS IS, SOME CONFUSION TONIGHT. REORIENTATED. DENIES SOA, CHEST PAIN OR DIZZY. AMB W WALKER AND GAIT BELT BUT CAN BE IMPULSIVE AND TRY TO AMB ALONE. PM MEDS GIVEN. BS WITH IN RANGE. PM SNACK PROVIDED. CALL LIGHT WI REACH. POC DISCUSSED. BED LOW POSITION. NEEDS MET.
[2021-08-27 05:18] VITALS: BP 149/60; PULSE 66; TEMP 97.5
--- NOTE | 2021-08-27 05:38 | NUR ---
Pt experiencing more confusion tonight than last. Ofter asking for his , asking about his belongings. States hes had bad nightmares overnight, did not sleep much. Has always used call light appropriatly however last night did not and was found wondering down the [place]. Reorientated and bed alarm activated for debra. Reassured of his where abouts- Call light wi reach.
--- NOTE | 2021-08-27 06:54 | NUR ---
Report received by LORI Vargas. Patient is sleeping in bed. Call light and bedside table are within reach. Will continue to monitor patient throughout shift.
--- NOTE | 2021-08-27 09:00 | NUR ---
Patient continues to voice his concerns about having to use a walker, gait belt and chair alarm and continues to self ambulate. Patient also is frustrated because he has to have his BG checked. This nurse explained to him it is protocol and a safety concern. Patient stated he was going home on Wednesday and did not see the need for any of this. Will continue to monitor patient throughout shift.
--- NOTE | 2021-08-27 15:27 | NUR ---
SW attended the patient/family meeting. The patient's , Zeynep, at bedside. Also present was IPR Director, PT, OT, and ST. IPR Director started by explaining the purpose of the meeting. PT/OT/ST discussed then patient's progress so far and how a discharge date has been set for this Wednesday, 08/29, with home health PT/OT vs outpatient PT/OT. The patient and his were in agreement to the plan. The patient and his would like some time to decide on whether they want home health or outpatient therapy. The team answered all questions. SW then followed up with the patient and provided him with the Team Conference Notes. The patient states that he is still deciding on home health vs outpatient therapy. He had no other concerns for SW at this time.
[2021-08-27 16:02] VITALS: BP 110/60; PULSE 74; TEMP 97.7
--- NOTE | 2021-08-27 20:00 | NUR ---
PT ALITTLE ANXIOUS TONIGHT. ALARM SOUNDING. PT SITTING ON SIDE OF BED. DID NOT HAVE O2 ON AT THIS TIME. REPLACED O2 2L NC. NO NEEDS. SEE MAR FOR ATIVAN GIVEN. ALLOWED PT TO VERBALIZE CONCERNS. CALL LIGHT IN REACH. BED ALARM SET.
--- NOTE | 2021-08-28 00:15 | NUR ---
ASSISTED PT TO BR. PT CALM AND COMPLIANT WITH CARES. VOIDED. MICKEY BED. CALL LIGHT IN REACH. BED ALARM SET.
[2021-08-28 04:18] VITALS: BP 122/63; PULSE 65; TEMP 97.7
--- NOTE | 2021-08-28 04:24 | NUR ---
PT AWAKE AND CONFUSED. ASSISTED TO BR. VOIDED BACK TO BED. [facility] AND NEEDED TO CALL HIS DAUGHTER TO PICK HIM UP. REORIENTED FOR THE MOST PART. STILL THINKS HE NEEDS A RIDE HOME NOW. PT CALM AND COOPERATIVE. CALL LIGHT IN REACH. BD ALARM SET.
--- NOTE | 2021-08-28 06:00 | NUR ---
PT FELL OUT OF BED. HIT HIS LT SIDE OF HEAD. NO REDNESS OR CONTUSIONS. VSS. PT RELATES "I AM FINE." ASSISTED BACK TO BED. NOTIFIED JUAN SANTOYO. NEW ORDERS NOTED.
[2021-08-28 06:04] VITALS: BP 107/58; PULSE 85; TEMP 98.3
--- NOTE | 2021-08-28 06:41 | NUR ---
Report received by LORI Rendon and she informed me patient had fallen out of bed earlier and hit his head. Patient will be getting a CT of head/spine. Patient is sleeping in bed. Call light and bedside table are within reach. Will continue to monitor patient throughout shift.
--- NOTE | 2021-08-28 07:23 | NUR ---
Patient is A & O x 4 but displays confusion. Patient denies pain at this time. Patient keeps asking where he is and when he is going home. Patient has moments of clarity and then the next has moments of confusion. Patient is currently in recliner eating breakfast. Call light and bedside table are within reach. Chair alarm is on. Will continue to monitor patient throughout shift.
--- NOTE | 2021-08-28 14:52 | NUR ---
IRVING met with the patient to follow up on preference for home health vs outpatient therapy. The patient reports that he has not really had a chance to talk to his yet and is still unsure. SW presented and read the IM form outloud to to the patient. The patient verbalized understanding and signed the form. SW provided him with a copy. IRVING then contacted the patient's , Zeynep, to review home health and outpatient therapy. Zeynep reports that they would prefer home health from [facility]. IRVING contacted Caty at [facility] and faxed over a referral. Caty reports that they are able to accept the patient for services. ST notified IRVING that the patient was interested in getting information about life alerts. IRVING provided the patient with brochures for 3 different life alerts.
[2021-08-28 17:31] VITALS: BP 118/68; PULSE 71; TEMP 98
--- NOTE | 2021-08-28 20:28 | NUR ---
PT RESTING IN BED. CONFUSED AT TIMES BUT COOPERATIVE. NO NEEDS AT THIS TIME. CALL LIGTH IN REACH. BED ALARM SET.
--- NOTE | 2021-08-28 21:41 | NUR ---
PT WOKE UP CONFUSED. THOUGHT HE WAS AT HOME. PT FREIGHTFUL. REORIENTED. ASSISTED TO BR. FAIRLY STEADY GAIT. BACK TO BED. CALL LIGHT IN REACH. BED ALARM SET.
[2021-08-29 04:25] VITALS: BP 122/67; PULSE 67; TEMP 98.5
--- NOTE | 2021-08-29 06:08 | NUR ---
PT WOKE UP SEVERAL TIMES WITH SIGNIFICANT CONFUSION. PT FRUSTRATED WITH SELF AWARENESS OF HIS CONFUSION. REORIENTED BUT EASILY BECOMES CONFUSED. EASILY REDIRECTED. PT SET OFF ALARM AT LEAST 3 TIMES WITH GETTING TO SIDE OF BED.
--- NOTE | 2021-08-29 09:45 | NUR ---
Patient alert and oriented, answers questions appropriately. See assessment. Ambulates and toilets independently with SBA. Patient has a little difficulty with comprehension, repeatedly asks about discharge time today, after 3-4 times of same conversation, states "ok, I get it now". Patient verbalizes he does not like having to call for help when he needs to use the bathroom, nor does he appreciate the bed and chair alarm. No other c/o at this time.
[2021-08-29] MEDS ORDERED: FERROUS SU325 MG/TAB PO (10:08)
--- NOTE | 2021-08-29 10:21 | NUR ---
The patient is to discharge back home with his today, 08/29, with home health services for penitentiary/PT/OT from [facility]. IRVING notified and faxed d/c orders to Caty at [facility]. No additional needs at this time.
--- NOTE | 2021-08-29 13:52 | NUR ---
Discharge QIM scores were reviewed by the team. Code of 6 chosen for oral hygiene was determined by team discussion to be the most usual performance before interventions for this patient during the assessment period. Code of 5 chosen for toilet hygiene was determined by team discussion to be the most usual performance for this patient during the assessment period. Code of 5 chosen for upper body dressing was determined by team discussion to be the most usual performance for this patient during the assessment period. Code of 4 chosen for lower body dressing was determined by team discussion to be the most usual performance for this patient during the assessment period. Code of 6 chosen for putting on/taking off footwear was determined by team discussion to be the most usual performance for this patient during the assessment period. Code of 4 chosen for sit to stand was determined by team discussion to be the most usual performance for this patient during the assessment period. Code of 4 chosen for walk 10 feet was determined by team discussion to be the most usual performance for this patient during the assessment period.--Amy Archer,
--- NOTE | 2021-08-29 14:00 | NUR ---
Discharge instructions reviewed with patient and spouse, verbalized understanding. During discharge reviewed, patients stated to "slow down", that patient has problems with comprehension with speaking fast and face impeded by mask, acknowledged request. Discharged via wheelchair to auto/home with spouse at 1400.
== END 2021-08-29 16:00 | disposition home health service (06) | DRG 309 ==
PROVIDERS: ADMIT Internal Medicine
DX: I48.0 Paroxysmal atrial fibrillation (principal); J96.11 Chronic respiratory failure with hypoxia; R26.89 Other abnormalities of gait and mobility; E11.40 Type 2 diabetes mellitus with diabetic neuropathy, unspecified; R55 Syncope and collapse; D64.9 Anemia, unspecified; K20.90 Esophagitis, unspecified without bleeding; E53.8 Deficiency of other specified B group vitamins; D69.6 Thrombocytopenia, unspecified; J44.9 Chronic obstructive pulmonary disease, unspecified; R33.9 Retention of urine, unspecified; N47.2 Paraphimosis; K25.7 Chronic gastric ulcer without hemorrhage or perforation; R94.31 Abnormal electrocardiogram [ECG] [EKG]; I10 Essential (primary) hypertension; K13.79 Other lesions of oral mucosa; K26.9 Duodenal ulcer, unspecified as acute or chronic, without hemorrhage or perforation; E78.5 Hyperlipidemia, unspecified; F41.9 Anxiety disorder, unspecified; F32.A Depression, unspecified; Z73.6 Limitation of activities due to disability; Z86.718 Personal history of other venous thrombosis and embolism; Z99.81 Dependence on supplemental oxygen; Z85.46 Personal history of malignant neoplasm of prostate; Z87.891 Personal history of nicotine dependence; Z79.899 Other long term (current) drug therapy; Z87.19 Personal history of other diseases of the digestive system; Z79.84 Long term (current) use of oral hypoglycemic drugs; Z86.16 Personal history of COVID-19
CPT/HCPCS: 99222-AI; 99232-AI; J1815

== ENCOUNTER 2021-09-23 14:03 | Emergency (ER) | payer MEDICARE, BC ==
[~2021-09-23] VITALS: Ht 177.8 cm; Wt 102.3 kg
[~2021-09-23 14:03] MED LIST changes: +FERROUS SU325 MG/TAB PO
[2021-09-23 14:27] VITALS: TEMP 97.5
[2021-09-23 15:43] LABS: ARTERIAL BLD GAS O2 SATURATION 94.1 % (92-100); ARTERIAL BLD GAS TCO2 CT 30.6; ARTERIAL BLOOD GAS BASE EXCESS 4.5 (-2-2); ARTERIAL BLOOD GAS HCO3 29.3 meq/L (22-26); ARTERIAL BLOOD GAS PCO2 45.1 mmHg (35-45); ARTERIAL BLOOD GAS pH 7.43 (7.35-7.45)
[2021-09-23 16:00] LABS: BASO # 0.1 K/mm3 (0.0-0.2); BASO % 0.9 % (0.0-2.0); EOS # 0.1 K/mm3 (0.0-0.7); EOS % 1.9 % (0-4.0); GRAN % 74.4 % (42.2-75.2); LYMPH # 0.8 K/mm3 (1.2-3.4); LYMPH % 11.4 % (20.0-51.0); MEAN CELL VOLUME 87 fl (80.0-100.0); MEAN CORPUSCULAR HGB CONC 28 g/dl (33.0-37.0); MEAN PLATELET VOLUME 11.7 fl (7.4-10.4); MONO # 0.7 K/mm3 (0.1-0.6); MONO % 10.7 % (1.7-9.3); PLATELET COUNT 125 K/mm3 (130-400); REDCELL DISTRIBUTION WIDTH-CV 21.5 % (11.5-14.5)
[2021-09-23 16:01] LABS: HEMOGLOBIN 7.3 g/dl (13.5-18.0); MEAN CORPUSCULAR HEMOGLOBIN 24 pg (27.0-31.0)
[2021-09-23 16:12] LABS: ALANINE AMINOTRANSFERASE 18 U/L (0-55); ALBUMIN 3.7 gm/dL (3.4-4.8); ALKALINE PHOSPHATASE 74 U/L (40-150); ANION GAP 11 mmol/L (7-16); AST,SGOT 22 U/L (5-34); BILIRUBIN,TOTAL 0.4 mg/dL (0.2-1.2); BLOOD UREA NITROGEN 18 mg/dL (8-26); CARBON DIOXIDE 30 mmol/L (23-31); CHLORIDE 104 mmol/L (98-107); CREATININE, serum 1.36 mg/dL (0.72-1.25); GLUCOSE 111 mg/dL (70-99); POTASSIUM 4.3 mmol/L (3.5-4.5); SODIUM 145 mmol/L (136-145); TOTAL PROTEIN 6.5 gm/dL (6.2-8.1)
[2021-09-23 16:16] LABS: INR 1.1 (0.8-3.0); PROTHROMBIN TIME 12.2 SECONDS (9.7-12.8)
[2021-09-23 16:23] LABS: TROPONIN-I < 0.010 ng/mL (0.00-0.033)
[2021-09-23] MEDS ORDERED: ALDACTONE 25MG25 M1 PO (17:37)
[2021-09-23] MEDS ORDERED: DULCOLAX STOOL100 MG PO (17:37)
[2021-09-23] MEDS ORDERED: LASIX 40MG TABL40 MG PO (17:37)
[2021-09-23 18:27] VITALS: BP 136/87; PULSE 65
== END 2021-09-23 18:28 | disposition home or self-care (01) ==
LOC: COL.ER 14:03
PROVIDERS: Family Medicine
DX: I11.0 Hypertensive heart disease with heart failure (principal); I50.9 Heart failure, unspecified; D64.9 Anemia, unspecified; F41.9 Anxiety disorder, unspecified; F32.A Depression, unspecified; I48.0 Paroxysmal atrial fibrillation; Z86.718 Personal history of other venous thrombosis and embolism; E78.5 Hyperlipidemia, unspecified; E11.40 Type 2 diabetes mellitus with diabetic neuropathy, unspecified; J44.9 Chronic obstructive pulmonary disease, unspecified; Z86.16 Personal history of COVID-19; Z87.891 Personal history of nicotine dependence; Z79.84 Long term (current) use of oral hypoglycemic drugs; Z79.899 Other long term (current) drug therapy
CPT/HCPCS: J1940

== ENCOUNTER 2021-09-24 10:39 | Outpatient (RCR) | payer MEDICARE, BC ==
[~2021-09-24] VITALS: Ht 177.8 cm; Wt 102.3 kg
[2021-09-24 11:53] VITALS: BP 134/78; PULSE 69; TEMP 98.4
[2021-09-24 12:50] VITALS: BP 154/82; PULSE 67; TEMP 98.5
[2021-09-24 13:05] VITALS: BP 156/73; PULSE 62; TEMP 98.6
[2021-09-24 13:35] VITALS: BP 145/76; PULSE 64; TEMP 98.6
[2021-09-24 14:35] VITALS: BP 149/79; PULSE 65; TEMP 97.9
[2021-09-24 15:10] VITALS: BP 151/83; PULSE 65; TEMP 97.9
--- NOTE | 2021-09-24 16:00 | NUR ---
Pt tolerated blood transfusion with no problem. Lasix 40 mg IV is on board and pt is waiting for ride home. He is resting in wheelchair with call light in reach, O2 via nc at 4liters.
== END 2021-09-24 16:45 | disposition home or self-care (01) ==
LOC: EUO 10:39
DX: I50.9 Heart failure, unspecified (principal); I11.0 Hypertensive heart disease with heart failure; D64.9 Anemia, unspecified
CPT/HCPCS: J1940; J7050; P9016

== ENCOUNTER 2021-09-27 12:32 | Observation (INO) | payer MEDICARE, BC ==
[~2021-09-27] VITALS: Ht 177.8 cm; Wt 93.1 kg
[2021-09-27 13:18] LABS: BASO # 0.1 K/mm3 (0.0-0.2); BASO % 1.6 % (0.0-2.0); EOS # 0.1 K/mm3 (0.0-0.7); EOS % 2.8 % (0-4.0); GRAN # 3.5 K/mm3 (1.4-6.5); LYMPH # 0.7 K/mm3 (1.2-3.4); LYMPH % 13.8 % (20.0-51.0); MEAN CELL VOLUME 85 fl (80.0-100.0); MEAN CORPUSCULAR HGB CONC 29 g/dl (33.0-37.0); MEAN PLATELET VOLUME 10.7 fl (7.4-10.4); MONO # 0.6 K/mm3 (0.1-0.6); MONO % 12.2 % (1.7-9.3); PLATELET COUNT 133 K/mm3 (130-400); RED BLOOD COUNT 3.47 M/mm3 (4.20-5.60); REDCELL DISTRIBUTION WIDTH-CV 20.9 % (11.5-14.5)
[2021-09-27 13:19] LABS: HEMATOCRIT 29.5 % (42.0-52.0); HEMOGLOBIN 8.5 g/dl (13.5-18.0); MEAN CORPUSCULAR HEMOGLOBIN 24 pg (27.0-31.0)
[2021-09-27 13:25] LABS: PROTHROMBIN TIME 11.6 SECONDS (9.7-12.8)
[2021-09-27 13:39] LABS: ALBUMIN 3.5 gm/dL (3.4-4.8); BILIRUBIN,TOTAL 0.4 mg/dL (0.2-1.2); CALCIUM 9.8 mg/dL (8.4-10.2); CREATININE, serum 1.36 mg/dL (0.72-1.25); POTASSIUM 3.7 mmol/L (3.5-4.5); TOTAL PROTEIN 6.7 gm/dL (6.2-8.1)
[2021-09-27 13:45] LABS: TROPONIN-I 0.011 ng/mL (0.00-0.033)
[2021-09-27] MEDS ORDERED: ELIQUIS 5MG PO (15:48)
[2021-09-27] MEDS ORDERED: COLACE 100100 MG/CAP PO (15:51)
[2021-09-27] MEDS ORDERED: FOSAMAX 70MG TA70 MG PO (15:52)
[2021-09-27] MEDS ORDERED: FERRO-TIME325 MG PO (15:52)
[2021-09-27 16:01] LABS: COLLECTION METHOD CLEAN CATCH
[2021-09-27 16:13] LABS: PH 7 (5-8); SQUAMOUS EPITHELIAL 0-2 /hpf; URINE APPEARANCE Cloudy; URINE BACTERIA None Seen /hpf; URINE BILIRUBIN Negative (NEGATIVE); URINE BLOOD Negative (NEGATIVE); URINE COLOR Yellow; URINE GLUCOSE Negative (NEGATIVE); URINE KETONE Negative (NEGATIVE); URINE LEUKOCYTE ESTERASE 1+ (NEGATIVE); URINE NITRATE Negative (NEGATIVE); URINE PROTEIN(semi-quant) Negative (NEGATIVE); URINE UROBILINOGEN >=4.0 mg/dL (NEGATIVE)
[2021-09-27 21:50] VITALS: BP 149/76; PULSE 56; TEMP 97.8
[2021-09-28] VITALS (7 sets, daily range): BP systolic 122–145; BP diastolic 63–89; PULSE 56–89; TEMP 97.3–98.3
[2021-09-28 00:37] LABS: CALCIUM 9.7 mg/dL (8.4-10.2); CREATININE, serum 1.32 mg/dL (0.72-1.25); MAGNESIUM 2.2 mg/dL (1.6-2.6); POTASSIUM 3.7 mmol/L (3.5-4.5)
--- NOTE | 2021-09-28 05:01 | NUR ---
Patient care, medication administration and nursing documentation occurred during a Daylight Savings Time Change.
[2021-09-28 07:29] LABS: BASO # 0.1 K/mm3 (0.0-0.2); EOS # 0.2 K/mm3 (0.0-0.7); EOS % 2.6 % (0-4.0); GRAN # 4.4 K/mm3 (1.4-6.5); GRAN % 75.6 % (42.2-75.2); LYMPH # 0.6 K/mm3 (1.2-3.4); LYMPH % 9.9 % (20.0-51.0); MEAN CELL VOLUME 85 fl (80.0-100.0); MEAN CORPUSCULAR HGB CONC 28 g/dl (33.0-37.0); MEAN PLATELET VOLUME 11.3 fl (7.4-10.4); MONO # 0.6 K/mm3 (0.1-0.6); MONO % 10.4 % (1.7-9.3); PLATELET COUNT 127 K/mm3 (130-400); RED BLOOD COUNT 3.54 M/mm3 (4.20-5.60); REDCELL DISTRIBUTION WIDTH-CV 20.8 % (11.5-14.5)
[2021-09-28 07:30] LABS: HEMATOCRIT 29.9 % (42.0-52.0); HEMOGLOBIN 8.5 g/dl (13.5-18.0); MEAN CORPUSCULAR HEMOGLOBIN 24 pg (27.0-31.0)
[2021-09-28 07:38] LABS: CALCIUM 9.5 mg/dL (8.4-10.2); CREATININE, serum 1.26 mg/dL (0.72-1.25); MAGNESIUM 2.2 mg/dL (1.6-2.6); POTASSIUM 3.6 mmol/L (3.5-4.5)
--- NOTE | 2021-09-28 09:34 | NUR ---
Dr Nino notified of consult.
--- NOTE | 2021-09-28 10:30 | NUR ---
Patient alert and oriented, answers questions appropriately. See assessment. Lungs with wheezes in bases, clear in upper lobes. Oxygen at 6l/hi-mya nc. Dyspnea noted with exertion. Baseline oxygen 4l/nc at home. Right knee with abrasion noted, no drainage, states obtained from fall at home. Patient states he "falls a lot" at home. Some times 2-3 times a day. Patient placed on fall precautions. No other c/o at this time.
--- NOTE | 2021-09-28 11:25 | NUR ---
Plan is to return home in [place] with and supports from adult dtrs. DPOA Jannette . Gwendolyn is DTR but no longer DPOA SW attempted assessment with client first. Patient could not stay awake for assessment but gave verbal consent to talk to DTRs. IRVING spoke with Ruth who reports that change to Jannette on 09/26/2021. Jannette will provide copy of POA to [employer] via email. DTR reports that the client resides in home with her and has a walker that he is supposed to use but does not like to, also has a bipap machince but takes off at night. Patient is reported to have a recent change in oxygen from 2-3 liters to 6-7 liters. [employer] is [employer]. They have home health in place with [facility] and Dr. Recinos is PCP, they have signed DPOA at Dr. Recinos Office. Patient has a blood transfusion a few days ago and hemoglobin continues to decrease according to dtr. Dtr and help with transport but recent has a restriction on her driving. Patient is reports that also work with Dr. Ortiz for COPD and Dr. Guajardo for Uriology. DTR reports that they are also getting a medical bed for the patient at home ti support breathing at night to sit patient up. DTR reports that the patients health has declined since he was released from [facility]. Will continue to follow for additonal needs.
--- NOTE | 2021-09-28 11:47 | NUR ---
Dr Nino here to see patient.
[2021-09-29 03:56] VITALS: BP 149/72; PULSE 62; TEMP 97.8
[2021-09-29 04:00] VITALS: BP 149/72; PULSE 62; TEMP 97.8
[2021-09-29 04:01] VITALS: BP 149/72
[2021-09-29 06:56] LABS: BASO # 0.1 K/mm3 (0.0-0.2); BASO % 0.9 % (0.0-2.0); EOS # 0.2 K/mm3 (0.0-0.7); EOS % 2.8 % (0-4.0); GRAN % 72.8 % (42.2-75.2); LYMPH # 0.8 K/mm3 (1.2-3.4); LYMPH % 12.1 % (20.0-51.0); MEAN CELL VOLUME 85 fl (80.0-100.0); MEAN CORPUSCULAR HGB CONC 29 g/dl (33.0-37.0); MEAN PLATELET VOLUME 11.3 fl (7.4-10.4); MONO # 0.8 K/mm3 (0.1-0.6); MONO % 11.1 % (1.7-9.3); PLATELET COUNT 131 K/mm3 (130-400); RED BLOOD COUNT 3.67 M/mm3 (4.20-5.60); REDCELL DISTRIBUTION WIDTH-CV 20.9 % (11.5-14.5)
[2021-09-29 06:58] LABS: HEMATOCRIT 31.2 % (42.0-52.0); MEAN CORPUSCULAR HEMOGLOBIN 25 pg (27.0-31.0)
[2021-09-29 07:19] LABS: CALCIUM 9.5 mg/dL (8.4-10.2); CREATININE, serum 1.62 mg/dL (0.72-1.25); POTASSIUM 3.7 mmol/L (3.5-4.5)
[2021-09-29 08:17] VITALS: BP 123/74; PULSE 68; TEMP 98.8
--- NOTE | 2021-09-29 08:47 | NUR ---
PT PLEASANT, AOX4, DENIES SOB/PAIN. ABD FIRM, BS AUDIBLE BUT REPORTS BM LAST NIGHT. ASSESSMENT PERFORMED, MEDICATIONS GIVEN, POTASSIUM MIXED IN ORANGE JUICE, ICE PROVIDED PER PT REQUEST, NO OTHER NEEDS
[2021-09-29 11:15] VITALS: BP 136/77; PULSE 66; TEMP 97.9
[2021-09-29] MEDS ORDERED: CORDARONE200 MG/TAB PO (11:36)
[2021-09-29] MEDS ORDERED: LASIX 40MG TABL40 MG PO (11:37)
[2021-09-29 13:52] VITALS: BP 136/77; PULSE 66; TEMP 97.9
--- NOTE | 2021-09-29 14:04 | NUR ---
COVID SWAB OBTAINED, REPORT CALLED TO [facility].
--- NOTE | 2021-09-29 14:35 | NUR ---
Operations Scheduler received patient's updated DPOA-HC documentation and placed it in patient's chart. IRVING then was contacted by patient's daughter, Jannette who advised at this point in time, they do feel patient would benefit from a rehab stay while they continue to make arrangements for additional supports at home for patient. Jannette advised she has been in contact with [facility] to discuss additional private duty services. IRVING discussed patient's observation status with Jannette and advised that [facility] may possibly be willing to waive the three midnight rule using the COVID waiver. Jannette states this would be what they would want to do if possible. IRVING contacted Alejandra at [facility] and faxed referral. Alejandra advised they would accept today using the COVID waiver. IRVING met with patient to follow up on discharge plan. Patient is not happy about it, but after speaking with his family he is agreeable to go to [facility]. IRVING set transport time for 1445 and provided time to RN and patient's daughter, Jannette. IRVING faxed discharge orders to Alejandra at [facility]. Discharge Plan: [facility]
--- NOTE | 2021-09-29 15:00 | NUR ---
PT ESCORTED OUT VIA WHEELCHAIR WITH PAPERWORK. IV REMOVED, PT ABLE TO SHOWER BEFORE RIDE ARRIVED, NO OTHER NEEDS
== END 2021-09-29 15:00 ==
LOC: COL.ER 12:32 → MEDICAL 14:21
PROVIDERS: Family Medicine; Physician Assistant; ADMIT Internal Medicine
DX: J96.21 Acute and chronic respiratory failure with hypoxia (principal); J81.1 Chronic pulmonary edema; I27.20 Pulmonary hypertension, unspecified; J44.9 Chronic obstructive pulmonary disease, unspecified; G47.33 Obstructive sleep apnea (adult) (pediatric); N17.9 Acute kidney failure, unspecified; I48.91 Unspecified atrial fibrillation; D50.0 Iron deficiency anemia secondary to blood loss (chronic); K26.9 Duodenal ulcer, unspecified as acute or chronic, without hemorrhage or perforation; K20.90 Esophagitis, unspecified without bleeding; I11.0 Hypertensive heart disease with heart failure; I50.9 Heart failure, unspecified; E53.8 Deficiency of other specified B group vitamins; E11.649 Type 2 diabetes mellitus with hypoglycemia without coma; E87.3 Alkalosis; R53.81 Other malaise; E78.5 Hyperlipidemia, unspecified; F32.A Depression, unspecified; F41.9 Anxiety disorder, unspecified; Z85.46 Personal history of malignant neoplasm of prostate; Z79.84 Long term (current) use of oral hypoglycemic drugs; Z79.899 Other long term (current) drug therapy; Z20.822 Contact with and (suspected) exposure to COVID-19; Z99.89 Dependence on other enabling machines and devices; Z79.01 Long term (current) use of anticoagulants
CPT/HCPCS: OP; 99232-AI; G0378; J1815; J1940

== ENCOUNTER 2022-07-13 15:51 | Inpatient (IN) | payer MEDICARE, BC ==
[~2022-07-13] VITALS: Ht 177.8 cm; Wt 90.9 kg
[~2022-07-13 15:51] MED LIST changes: +FERRO-TIME325 MG PO; +FOSAMAX 70MG TA70 MG PO; +WELLBUTRIN SR150 M1 PO; -WELLBUTRIN XL150 MG PO
[2022-07-13 17:02] LABS: BASO % 0.3 % (0.0-2.0); EOS # 0.1 K/mm3 (0.0-0.7); EOS % 0.8 % (0.0-4.0); GRAN # 9.6 K/mm3 (1.4-6.5); GRAN % 82.9 % (42.2-75.2); HEMATOCRIT 43.7 % (42.0-52.0); HEMOGLOBIN 14.6 g/dl (13.5-18.0); LYMPH # 0.6 K/mm3 (1.2-3.4); LYMPH % 5.4 % (20.0-51.0); MEAN CELL VOLUME 92 fl (80.0-100.0); MEAN CORPUSCULAR HEMOGLOBIN 31 pg (27-31); MEAN CORPUSCULAR HGB CONC 33 g/dl (33.0-37.0); MEAN PLATELET VOLUME 11.4 fl (7.4-10.4); MONO # 1.2 K/mm3 (0.1-0.6); PLATELET COUNT 116 K/mm3 (130-400); RED BLOOD COUNT 4.73 M/mm3 (4.20-5.60); REDCELL DISTRIBUTION WIDTH-CV 13.1 % (11.5-14.5)
[2022-07-13 17:37] LABS: BILIRUBIN,TOTAL 1.2 mg/dL (0.2-1.2); C-REACTIVE PROTEIN 31.96 mg/dL (0.00-0.50); CALCIUM 9.1 mg/dL (8.4-10.2); CREATININE, serum 1.38 mg/dL (0.72-1.25); POTASSIUM 3.2 mmol/L (3.5-4.5)
[2022-07-13 21:02] VITALS: BP 126/71; PULSE 74; TEMP 98.1
[2022-07-14 00:44] VITALS: BP 112/66; PULSE 80; TEMP 99.7
--- NOTE | 2022-07-14 06:00 | NUR ---
CALL TO DR. VALADEZ (PULMONOLOGY) TO INFORM OF CONSULT THIS AM.
[2022-07-14 06:04] LABS: HEMATOCRIT 41.3 % (42.0-52.0); HEMOGLOBIN 13.3 g/dl (13.5-18.0); MEAN CELL VOLUME 95 fl (80.0-100.0); MEAN CORPUSCULAR HEMOGLOBIN 31 pg (27-31); MEAN CORPUSCULAR HGB CONC 32 g/dl (33.0-37.0); MEAN PLATELET VOLUME 11.8 fl (7.4-10.4); PLATELET COUNT 98 K/mm3 (130-400); RED BLOOD COUNT 4.36 M/mm3 (4.20-5.60); REDCELL DISTRIBUTION WIDTH-CV 13.2 % (11.5-14.5)
[2022-07-14 06:28] LABS: CALCIUM 8.8 mg/dL (8.4-10.2); CREATININE, serum 0.94 mg/dL (0.72-1.25); POTASSIUM 3.9 mmol/L (3.5-4.5)
[2022-07-14 07:31] VITALS: BP 122/70; PULSE 72; TEMP 97.2
[2022-07-14 07:40] LABS: BAND 32 % (0-10); BASOPHIL 1 % (0-2); LYMPHOCYTE 2 % (20.0-51.0); METAMYELOCYTE 1 % (0-0); NEUTROPHILS 61 % (42.0-75.2)
[2022-07-14 07:41] LABS: PLATELET ESTIMATE DECREASED (NORMAL); POLYCHROMASIA 1+
[2022-07-14 11:36] VITALS: BP 110/66; PULSE 73; TEMP 98.1
--- NOTE | 2022-07-14 12:57 | NUR ---
Flaca: Yazidi Situation: Accounts Payable Professional stopped by room on rounds Background: Pt was resting and content Assessment: Pt has no needs and appreciated the visit Recommendation: Accounts Payable Professional will follow up as needed
[2022-07-14] MEDS ORDERED: PACERONE200 MG PO (13:58)
[2022-07-14] MEDS ORDERED: MIRTAZAPINE7.5 MG PO (13:59)
[2022-07-14] MEDS ORDERED: ALDACTONE 25MG25 M1 PO (14:00)
[2022-07-14] MEDS ORDERED: GOOD NEIGH3.4 GM/Dos PO (14:00)
--- NOTE | 2022-07-14 14:00 | NUR ---
Hearing Aid Technician met with patient to discuss discharge planning. Patient lives in [place] with his , Zeynep (ph#[phone]) and sees Dr. Seay for primary care. [facility] Patient does not use any DME and is normally independent with ADLS. Patient has DPOA-HC in chart which designates his , Zeynep and daughter, Jannette. SW reviewed PT/OT recommendation for SNF and patient expressed he isn't very excited about the recommendation but is in agreement. Patient's preferences for rehab are 1)[facility] and 2) [facility]. SW contacted both facilities and faxed referrals. SW spoke with patient's , Zeynep who confirmed these preferences. Discharge Plan: SNF
[2022-07-14] MEDS ORDERED: LAMISIL1% TP (14:01)
[2022-07-14] MEDS ORDERED: LIPITOR20 MG PO (14:02)
[2022-07-14] MEDS ORDERED: BROVANA15 MCG/2 M IH (14:04)
[2022-07-14] MEDS ORDERED: ATROVENT I0.2 MG/1 M IH (14:05)
--- NOTE | 2022-07-14 14:33 | NUR ---
lAejandra at [facility] advised they should be able to accept patient.
[2022-07-14 15:35] VITALS: BP 121/70; PULSE 66; TEMP 97.3
[2022-07-14 19:11] VITALS: BP 111/78; PULSE 66; TEMP 98.8
[2022-07-15] VITALS (7 sets, daily range): BP systolic 117–150; BP diastolic 68–85; PULSE 58–82; TEMP 97.6–98
[2022-07-15 01:00] LABS: PROCALCITONIN 2.83 ng/mL (0.00-0.09)
[2022-07-15 06:32] LABS: HEMATOCRIT 41.7 % (42.0-52.0); HEMOGLOBIN 13.6 g/dl (13.5-18.0); MEAN CELL VOLUME 93 fl (80.0-100.0); MEAN CORPUSCULAR HEMOGLOBIN 30 pg (27-31); MEAN CORPUSCULAR HGB CONC 33 g/dl (33.0-37.0); MEAN PLATELET VOLUME 11.9 fl (7.4-10.4); PLATELET COUNT 109 K/mm3 (130-400); RED BLOOD COUNT 4.47 M/mm3 (4.20-5.60); REDCELL DISTRIBUTION WIDTH-CV 13.2 % (11.5-14.5)
[2022-07-15 06:45] LABS: CALCIUM 9.2 mg/dL (8.4-10.2); CREATININE, serum 0.83 mg/dL (0.72-1.25); POTASSIUM 4.1 mmol/L (3.5-4.5)
[2022-07-15 07:42] LABS: BAND 24 % (0-10); LYMPHOCYTE 3 % (20.0-51.0); NEUTROPHILS 69 % (42.0-75.2)
[2022-07-15 07:43] LABS: POLYCHROMASIA 1+
[2022-07-15 07:44] LABS: PLATELET ESTIMATE NORMAL (NORMAL)
--- NOTE | 2022-07-15 09:43 | NUR ---
VSS,PT A&O X4, PT ABLE TO MAKE NEEDS KNOWN, PT RESTING IN BED, PT REQUESTS SHOWER THIS AM, FALL PRECAUTIONS IN PLACE, CALL LIGHT IN REACH
[2022-07-15] MEDS ORDERED: TYLENOL 500MG500 MG PO (09:45)
--- NOTE | 2022-07-15 16:56 | NUR ---
Budget Clerk notified patient's , Zeynep that [facility] can accept. Discharge Plan: [facility]
--- NOTE | 2022-07-15 19:29 | NUR ---
Tx given via mask, tolerated well. Pt on 3.5L NC before tx and 3L after.
--- NOTE | 2022-07-15 20:30 | NUR ---
RESTING IN BED. O2 3L NC. OCCASIONAL LOOSE PRODUCTIVE COUGH WITH LIGHT ZARAGOZA SPUTUM. GETTING ZOSYN IV. NO DISTRESS. CALL LIGHT IN REACH. BED ALARM SET.
[2022-07-16 05:03] VITALS: BP 165/82; PULSE 61; TEMP 98
--- NOTE | 2022-07-16 05:50 | NUR ---
PT COUGHING WITH YELLOWISH SPUTUM. SEE MAR FOR [facility].
--- NOTE | 2022-07-16 06:04 | NUR ---
PT REPORTS ON GABAPENTIN 600MG BID. NOT REORDERED. WILL PASS ON IN REPORT.
[2022-07-16 06:52] LABS: HEMATOCRIT 42.5 % (42.0-52.0); HEMOGLOBIN 13.3 g/dl (13.5-18.0); MEAN CELL VOLUME 96 fl (80.0-100.0); MEAN CORPUSCULAR HEMOGLOBIN 30 pg (27-31); MEAN CORPUSCULAR HGB CONC 31 g/dl (33.0-37.0); MEAN PLATELET VOLUME 11.7 fl (7.4-10.4); PLATELET COUNT 130 K/mm3 (130-400); RED BLOOD COUNT 4.45 M/mm3 (4.20-5.60); REDCELL DISTRIBUTION WIDTH-CV 13.4 % (11.5-14.5)
[2022-07-16 07:02] LABS: CREATININE, serum 0.86 mg/dL (0.72-1.25)
[2022-07-16 07:48] LABS: BAND 22 % (0-10); LYMPHOCYTE 3 % (20.0-51.0); NEUTROPHILS 73 % (42.0-75.2)
[2022-07-16 07:49] LABS: PLATELET ESTIMATE NORMAL (NORMAL)
--- NOTE | 2022-07-16 07:54 | NUR ---
VSS, PT A&O X4, PT ABLE TO MAKE NEEDS KNOWN, PT DENIES PIAN, FALL PRECAUTIONS IN PLACE, CALL LIGHT IN REACH
[2022-07-16 08:00] VITALS: BP 160/94; PULSE 74; TEMP 98.2
[2022-07-16] MEDS ORDERED: ZOSYN 4 GM-0.51 PD1 IV (10:05)
[2022-07-16] MEDS ORDERED: MUCUS RELIEF400 M1 PO (10:06)
[2022-07-16] MEDS ORDERED: TESSALON P100 MG/CAP PO (10:06)
[2022-07-16] MEDS ORDERED: PERFOROMIS20 MCG/2 M IH (10:08)
[2022-07-16] MEDS ORDERED: IPRATROPIUM BROM3 M1 IH (10:08)
[2022-07-16] MEDS ORDERED: PREDNISONE20 MG PO (10:09)
[2022-07-16 12:06] VITALS: BP 145/80; PULSE 69; TEMP 98.3
--- NOTE | 2022-07-16 12:42 | NUR ---
It Project Manager attended clinical rounds with the team and patient to discharge today. Patient needs IV zosyn every 8 hours. IRVING collaborated with Alejandra at [facility] who advised this can be done at [facility], however they would need a PICC placed, even though it will just four more days of IV antibiotics. Hospitalist placed PICC order. SW met with patient to review IM form. Patient verbalized understanding and provided signature. Patient is agreeable to discharge to [facility] today. IRVING collaborated with Alejandra to set transport time for 1300. IRVING notified both patient's , Zeynep and daughter, Mary (ph#[phone]) of discharge plan and time. SW faxed discharge orders and negative covid results. Discharge Plan: [facility]
--- NOTE | 2022-07-16 12:43 | NUR ---
REPORT CALLED TO [facility]
== END 2022-07-16 14:43 | DRG 871 ==
LOC: COL.ER 15:51 → MEDICAL 18:39
PROVIDERS: Family Medicine; Hospitalist; Physician Assistant; Student in an Organized Health Care Education/Training Program; ADMIT Internal Medicine
PROC: 02HV33Z Insertion of Infusion Device into Superior Vena Cava, Percutaneous Approach (ICD-10-PCS; principal; 2022-07-16)
DX: A41.9 Sepsis, unspecified organism (principal); J18.9 Pneumonia, unspecified organism; J96.11 Chronic respiratory failure with hypoxia; J44.0 Chronic obstructive pulmonary disease with (acute) lower respiratory infection; E87.2 Acidosis; N17.9 Acute kidney failure, unspecified; M62.82 Rhabdomyolysis; J44.1 Chronic obstructive pulmonary disease with (acute) exacerbation; E11.40 Type 2 diabetes mellitus with diabetic neuropathy, unspecified; I10 Essential (primary) hypertension; E78.5 Hyperlipidemia, unspecified; D64.9 Anemia, unspecified; F41.9 Anxiety disorder, unspecified; F32.A Depression, unspecified; I48.0 Paroxysmal atrial fibrillation; F42.9 Obsessive-compulsive disorder, unspecified; J44.9 Chronic obstructive pulmonary disease, unspecified; Z20.822 Contact with and (suspected) exposure to COVID-19; E87.6 Hypokalemia; E11.65 Type 2 diabetes mellitus with hyperglycemia; D72.829 Elevated white blood cell count, unspecified; Z86.718 Personal history of other venous thrombosis and embolism; Z85.46 Personal history of malignant neoplasm of prostate; Z86.16 Personal history of COVID-19; Z87.01 Personal history of pneumonia (recurrent); Z87.891 Personal history of nicotine dependence; Z23 Encounter for immunization
CPT/HCPCS: C1751; J0696; J1815; J2543; J2930; J7030; J7120

== ENCOUNTER 2023-08-06 19:31 | Emergency (ER) | payer MEDICARE, BC ==
[~2023-08-06] VITALS: Ht 177.8 cm; Wt 92.7 kg
[~2023-08-06 19:31] MED LIST changes: +AMOXICILLIN 8751 TAB PO; +ATROVENT I0.2 MG/1 M IH; +BLUE-EMU LIDOC1 EACH TP; +BROVANA15 MCG/2 M IH; +GOOD NEIGH3.4 GM/Dos PO; +IPRATROPIUM BROM3 M1 IH; +LAMISIL1% TP; +LIPITOR20 MG PO; +MUCUS RELIEF400 M1 PO; +NORCO 325 MG-51 TAB PO; +PACERONE200 MG PO; +PERFOROMIS20 MCG/2 M IH; +ROXICODONE 55 MG/TAB PO; +SENOKOT S 50 MG1 TAB PO; +TESSALON P100 MG/CAP PO; +TYLENOL 500MG500 MG PO; +ZOSYN 4 GM-0.51 PD1 IV
[2023-08-06 19:35] VITALS: TEMP 98.3
[2023-08-06] MEDS ORDERED: NORCO 325 MG-51 TAB PO (20:37)
[2023-08-06 20:46] VITALS: BP 145/90; PULSE 66
== END 2023-08-06 21:00 | disposition home or self-care (01) ==
LOC: COL.ER 19:31
DX: S52.502A Unspecified fracture of the lower end of left radius, initial encounter for closed fracture (principal); S50.02XA Contusion of left elbow, initial encounter; S60.212A Contusion of left wrist, initial encounter; M25.512 Pain in left shoulder; Z87.891 Personal history of nicotine dependence; Z86.16 Personal history of COVID-19; W01.0XXA Fall on same level from slipping, tripping and stumbling without subsequent striking against object, initial encounter; Y93.01 Activity, walking, marching and hiking